=== PATIENT | female | born 1965 | race Caucasian/White ===

== ENCOUNTER → 2021-02-27 | Day surgery (SDC) | payer OTHER ==
[~2021-02-27] MED LIST: AMLO-187 PO; ATOR20TA58 PO; FEXO60TA25 PO; HYDR-2145 PO; IPRATRPIUM/ALBUTEROL 0.5/2.5MG 3 ML NEBU. NEB PRN; IV RINGERS SOLUTION,LACTATED 1,000 ML IV SCH; LIDOCAINE 2% PF 5 ML VIAL. ONE; MIDAZOLAM HCL PF 2 MG/2 ML VIAL. IV ONE; MULT-445 PO; OLME40TA12 PO; ONDANSETRON PF 4 MG/2 ML VIAL. IV PRN; PROPOFOL 10,000 MCG/ML (20ML) VIAL IV ONE
[2021-02-27 11:36] VITALS: BP 138/89
--- NOTE | 2021-03-01 15:10 | PATHOLOGY ---
[facility] Accession Number: [id number] . 01 Material submitted: . sigmoid colon - SIGMOID COLON POLYP, COLD SNARE X2, HOT SNARE X2 . 01 Clinical history: . SCREENING COLONOSCOPY . 02 Diagnosis: Segments of colonic mucosa, sigmoid polyps cold snare x 2 and sigmoid polyps hot snare x 2: - Tubular adenoma (1). - Sessile serrated polyp/adenoma (2). - Hyperplastic polyp (1). LBQ 03/01/2021 1407 Local . 02 Comment: There is no high grade dysplasia or evidence of malignancy. (JPM/db; 03/01/2021) . 02 Electronically signed: . Ankur Sorensen MD, Pathologist NPI- [id number] . 01 Gross description: . The specimen is received in formalin, labeled "Padmini Corral S, sigmoid colon polyp cold snare, snare x 2" and per the requisition "sigmoid colon polyp, cold snare x 2, sigmoid polyp, hot snare x 2 (one container)". It consists of multiple melgoza polypoid soft tissue fragments ranging from 0.2-0.7 cm in greatest dimension. The resection surface of the largest 2 fragments are differentially inked and the fragment are bisected. The specimen is entirely submitted as follows: A1: Multiple fragments, intact A2: 2 polyps, bisected (MRF; 02/28/2021) MFE/MFE 02/28/2021 1859 Local . 02 Pathologist provided ICD-10: D12.5 . 02 CPT . 167605, [id number] Specimen Comment: A courtesy copy of this report has been sent to [phone] Specimen Comment: Report sent to Performed at: [address] [address] [facility] [address], [place], [place] [id number] MD William Nascimento MD Phone: [phone] Performed at: [address] [id number] MD Ankur Sorensen MD Phone: [phone]
== END | disposition home or self-care (01) ==
LOC: SURG 09:15
PROVIDERS: ATTEND Internal Medicine Gastroenterology
DX: Z12.11 Encounter for screening for malignant neoplasm of colon (principal); Z83.71 Family history of colonic polyps; D12.5 Benign neoplasm of sigmoid colon; K57.30 Diverticulosis of large intestine without perforation or abscess without bleeding; I10 Essential (primary) hypertension; E78.00 Pure hypercholesterolemia, unspecified; E66.9 Obesity, unspecified; F17.210 Nicotine dependence, cigarettes, uncomplicated; Z98.890 Other specified postprocedural states; Z79.899 Other long term (current) drug therapy; Z20.822 Contact with and (suspected) exposure to COVID-19; Z68.35 Body mass index [BMI] 35.0-35.9, adult
CPT/HCPCS: 45385; 88305; C9803; J2001; J2704; J7120; U0003